=== PATIENT | female | born 1985 | race Caucasian/White ===

== ENCOUNTER 2017-01-10 18:13 | Emergency (ER) | payer BC, OTHER ==
[2017-01-10] MEDS ORDERED: ONDANSETRON 4 MG/2 ML VIAL IVP STA ×2 (18:31→20:33)
[2017-01-10] MEDS ORDERED: SODIUM CHLORIDE 0.9% 500 ML IV STA (18:31)
[2017-01-10] MEDS ORDERED: HYDROmorphone 1 MG/ML 1 ML SYRINGE IVP STA (18:31)
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
[2017-01-10 18:54] LABS: Basophils % (A) 1 %; CHCM 34.8; Eosinophils # (A) 0.3 k/uL (0-0.7); Eosinophils % (A) 4 %; HCT 40.7 % (34.0-46.0); HDW 2.35; HGB 14.1 gm/dL (11.4-16.0); Luc # (Auto) 0.17; Luc % (Auto) 2; Lymphocytes # (A) 2.1 k/uL (1.0-4.8); Lymphocytes % (A) 28 %; MCHC 34.7 g/dL (31.0-37.0); MCV 89.5 fL (80.0-100.0); Mean Platelet Volume 6.8; Monocytes # (A) 0.4 k/uL (0-1.0); Monocytes % (A) 6 %; Neutrophils # (A) 4.5 k/uL (1.3-7.7); Neutrophils % (A) 60 %; RBC 4.54 m/uL (3.80-5.40); RDW 13.3 % (11.5-15.5); WBC 7.5 k/uL (3.8-10.6); WBC (Perox) 7.64
[2017-01-10 19:09] LABS: ALT 45 U/L (9-52); AST 27 U/L (14-36); Alkaline Phosphatase 50 U/L (38-126); Amylase 41 U/L (30-110); Anion Gap 10 mmol/L; Blood Urea Nitrogen 10 mg/dL (7-17); Calcium 9.3 mg/dL (8.4-10.2); Carbon Dioxide 22 mmol/L (22-30); Chloride 109 mmol/L (98-107); Glucose 98 mg/dL (74-99); Non-African American GFR(MDRD) >60 (>60 ml/min/1.73 sqM); Potassium 4.2 mmol/L (3.5-5.1); Sodium 141 mmol/L (137-145); Total Bilirubin 0.6 mg/dL (0.2-1.3); Total Protein 7.5 g/dL (6.3-8.2)
--- NOTE | 2017-01-10 19:51 | XR ---
EXAMINATION TYPE: XR chest 2V DATE OF EXAM: 01/10/2017 COMPARISON: NONE HISTORY: Chest pain TECHNIQUE: Frontal and lateral views of the chest are obtained. FINDINGS: There is no focal air space opacity, pleural effusion, or pneumothorax seen. The cardiac silhouette size is within normal limits. The osseous structures are intact. IMPRESSION: No acute cardiopulmonary process.
--- NOTE | 2017-01-10 19:52 | XR ---
EXAMINATION TYPE: XR KUB DATE OF EXAM: 01/10/2017 7:47 PM CLINICAL HISTORY: Epigastric abdominal pain TECHNIQUE: Single supine KUB image of the abdomen is obtained. COMPARISON: None. FINDINGS: Scattered gas is seen in non-distended small bowel loops. Gas and fecal material is seen in non-distended colon. There is no visceromegaly or pneumoperitoneum. The lung bases are clear and the osseous structures are intact. 5 mm calcification overlies the transverse process of L3 on the left and could represent a ureteral calculus. IMPRESSION: 1. 5 mm calcification overlying the left L3 transverse process that could represent a ureteral calcif ication. 2. Nonobstructive bowel gas pattern.
[2017-01-10 20:43] VITALS: RESP 16
[2017-01-10 20:56] LABS: Appearance,Urine Cloudy (Clear); Bacteria,Urine Many /hpf; Bilirubin,Urine Negative (Negative); Glucose,Urine (UA) Negative (Negative); Ketones,Urine Negative (Negative); Leukocyte Esterase,Urine Large (Negative); Mucus,Urine Many /hpf; Nitrite,Urine Positive (Negative); Particle Count 133536; Protein,Urine Trace (Negative); RBC,Urine 7 /hpf (0-5); Specific Gravity,Urine 1.022 (1.001-1.035); Squamous Epithelial Cell,Urine 5 /hpf (0-4); UA Billing (MACRO vs. MICRO) MICRO; Urobilinogen,Urine <2.0 mg/dL (<2.0); WBC,Urine 38 /hpf (0-5)
[2017-01-10 21:41] VITALS: BP 131/76; PULSE 76; TEMP 98
== END 2017-01-10 21:45 | disposition home or self-care (01) ==
LOC: EC 18:13
DX: S29.012A Strain of muscle and tendon of back wall of thorax, initial encounter (principal); N39.0 Urinary tract infection, site not specified; N20.0 Calculus of kidney; G40.909 Epilepsy, unspecified, not intractable, without status epilepticus; F32.9 Major depressive disorder, single episode, unspecified; F41.9 Anxiety disorder, unspecified; Z87.442 Personal history of urinary calculi; Z79.899 Other long term (current) drug therapy
CPT/HCPCS: 36415; 93005; 80053; 82150; 83690; 84484; 85025; 81001; 81025; 71020; 74000; 99284; 96374; 96375; 96376; J2405; J1170

== ENCOUNTER 2018-02-08 13:36 | Emergency (ER) | payer OTHER ==
[2018-02-08 14:06] VITALS: BP 127/83; PULSE 84; RESP 18; TEMP 99
[2018-02-08] MEDS ORDERED: SODIUM CHLORIDE 0.9% 1,000 ML IV STA (15:31)
[2018-02-08] MEDS ORDERED: ACETAMINOPHEN IV (For NPO) 1,000 MG in EMPTY BAG 1 BAG IVPB STA (15:31)
--- NOTE | 2018-02-08 15:52 | ED ---
General Adult HPI - General Chief complaint: Back Pain/Injury Stated complaint: back pain,kidney stone Time Seen by Provider: 02/08/18 15:17 Source: patient Mode of arrival: ambulatory Limitations: no limitations - Related Data Home Medications Medication Instructions Recorded Confirmed Cetirizine HCl [Zyrtec] 10 mg PO DAILY PRN 01/10/17 01/10/17 Lacosamide [Vimpat] 100 mg PO BID 01/10/17 01/10/17 Omeprazole Magnesium [PriLOSEC OTC] 20 mg PO DAILY 02/08/18 02/08/18 Previous Rx's Medication Instructions Recorded Nitrofurantoin Monohyd/M-Cryst 100 mg PO Q12HR #14 cap 02/08/18 [Macrobid] Allergies Allergy/AdvReac Type Severity Reaction Status Date / Time No Known Allergies Allergy Verified 02/08/18 15:37 Review of Systems ROS Statement: Those systems with pertinent positive or pertinent negative responses have been documented in the HPI. ROS Other: All systems not noted in ROS Statement are negative. Past Medical History Past Medical History: Seizure Disorder Additional Past Medical History / Comment(s): KIDNEY STONE History of Any Multi-Drug Resistant Organisms: None Reported Past Surgical History: Appendectomy, Bowel Resection Additional Past Surgical History / Comment(s): D&C X2 Past Psychological History: Anxiety, Depression Smoking Status: Former smoker Past Alcohol Use History: Rare Past Drug Use History: None Reported General Exam Limitations: no limitations Course Vital Signs 02/08/18 14:04 Temperature 99.0 F Pulse Rate 84 Respiratory 18 Rate Blood Pressure 127/83 O2 Sat by Pulse 98 Oximetry Medical Decision Making - Medical Decision Making Patient reexamined at this time shows no signs of distress is resting comfortably. Patient's labs been reviewed. Patient's blood work is unremarkable. Her urinalysis shows possible urinary tract infection. Patient developed results. Stressing comfortably currently. Patient's vital stable here in the emergency room no fever. Was discussed with patient about further evaluation and imaging with CAT scan. At this time shows being discharged home. She will be started on antibiotics. Given dose of Rocephin here in the emergency room. Advised follow-up family doctor next 2 days return if symptoms increase or worsen. Disposition Clinical Impression: UTI (urinary tract infection) Disposition: HOME SELF-CARE Condition: Good Instructions: Urinary Tract Infection in Women (ED) Additional Instructions: Please use medication as discussed. Please follow-up with family doctor in the next 2 days of symptoms have not improved. Please return to emergency room if the symptoms increase or worsen or for any other concerns. Prescriptions: Nitrofurantoin Monohyd/M-Cryst [Macrobid] 100 mg PO Q12HR #14 cap Is patient prescribed a controlled substance at d/c from ED?: No Referrals: Lang Crenshaw DO [Primary Care Provider] - 1-2 days Time of Disposition: 16:22
[2018-02-08 15:54] LABS: Basophils % (A) 1 %; Eosinophils # (A) 0.1 k/uL (0-0.7); Eosinophils % (A) 2 %; HCT 36.3 % (34.0-46.0); HGB 12.2 gm/dL (11.4-16.0); Lymphocytes # (A) 1.4 k/uL (1.0-4.8); Lymphocytes % (A) 22 %; MCH 30.1 pg (25.0-35.0); MCHC 33.6 g/dL (31.0-37.0); MCV 89.6 fL (80.0-100.0); Mean Platelet Volume 6.6; Monocytes # (A) 0.5 k/uL (0-1.0); Monocytes % (A) 7 %; Neutrophils # (A) 4.2 k/uL (1.3-7.7); Neutrophils % (A) 67 %; Platelet Count 324 k/uL (150-450); RBC 4.05 m/uL (3.80-5.40); RDW 13.1 % (11.5-15.5); WBC 6.3 k/uL (3.8-10.6)
[2018-02-08 15:58] LABS: Amorphous Sediment,Urine Rare /hpf; Appearance,Urine Cloudy (Clear); Bacteria,Urine Many /hpf; Bilirubin,Urine Negative (Negative); Blood,Urine Small (Negative); Color,Urine Light Yellow; Glucose,Urine (UA) Negative (Negative); Ketones,Urine Negative (Negative); Leukocyte Esterase,Urine Moderate (Negative); Nitrite,Urine Negative (Negative); Protein,Urine Negative (Negative); RBC,Urine 1 /hpf (0-5); Specific Gravity,Urine 1.008 (1.001-1.035); Squamous Epithelial Cell,Urine 17 /hpf (0-4); Urobilinogen,Urine <2.0 mg/dL (<2.0)
[2018-02-08 16:03] LABS: ALT 36 U/L (9-52); AST 28 U/L (14-36); Alkaline Phosphatase 41 U/L (38-126); Anion Gap 9 mmol/L; Blood Urea Nitrogen 13 mg/dL (7-17); Calcium 9.2 mg/dL (8.4-10.2); Carbon Dioxide 25 mmol/L (22-30); Chloride 108 mmol/L (98-107); Glucose 96 mg/dL (74-99); Potassium 3.7 mmol/L (3.5-5.1); Sodium 142 mmol/L (137-145); Total Bilirubin 0.3 mg/dL (0.2-1.3); Total Protein 7.1 g/dL (6.3-8.2)
== END 2018-02-08 17:15 | disposition home or self-care (01) ==
LOC: EC 13:36
DX: N39.0 Urinary tract infection, site not specified (principal); G40.909 Epilepsy, unspecified, not intractable, without status epilepticus; Z87.442 Personal history of urinary calculi; Z90.49 Acquired absence of other specified parts of digestive tract; Z98.890 Other specified postprocedural states; Z87.891 Personal history of nicotine dependence; Z79.899 Other long term (current) drug therapy
CPT/HCPCS: 36415; 80053; 85025; 81001; 81025; 87086; 87077; 87186; 99283; 96365; 96375; J0696; J0131

== ENCOUNTER 2018-02-11 14:00 | Emergency (ER) | payer OTHER ==
[2018-02-11 14:05] VITALS: TEMP 98.2
--- NOTE | 2018-02-11 14:42 | ED ---
Back Pain HPI - General Chief Complaint: Back Pain/Injury Stated Complaint: back pain-revisit Time Seen by Provider: 02/11/18 14:14 Source: patient, RN notes reviewed, old records reviewed Limitations: no limitations - History of Present Illness Initial Comments: 32-year-old female presents emergency room for reevaluation. She was seen in the emergency department 3 days ago complaining of left-sided abdominal pain and back pain. Patient ports that she was sinus with urinary tract infection at that time. She was started on Macrobid. She was told to return if he was having any worsening complaints of pain. She reports that she's had no recent bowel movements, since her last ER visit. She is concerned about diverticulitis or possibly passing a stone. Patient did have a positive urine culture for E. coli. She was treated with Macrobid and has been taking the antibiotic as prescribed. She denies any recent fevers or chills. Patient states that she has had a history of appendectomy a few years ago which was completed a in [place]. - Related Data Home Medications Medication Instructions Recorded Confirmed Cetirizine HCl [Zyrtec] 10 mg PO DAILY PRN 01/10/17 02/11/18 Lacosamide [Vimpat] 100 mg PO HS 01/10/17 02/11/18 Omeprazole Magnesium [PriLOSEC OTC] 20 mg PO HS 02/08/18 02/11/18 Previous Rx's Medication Instructions Recorded Nitrofurantoin Monohyd/M-Cryst 100 mg PO Q12HR #14 cap 02/08/18 [Macrobid] Bisacodyl [Dulcolax] 10 mg PO ONCE #15 tablet. 02/11/18 Allergies Allergy/AdvReac Type Severity Reaction Status Date / Time No Known Allergies Allergy Verified 02/11/18 14:33 Review of Systems ROS Statement: Those systems with pertinent positive or pertinent negative responses have been documented in the HPI. ROS Other: All systems not noted in ROS Statement are negative. Past Medical History Past Medical History: Seizure Disorder Additional Past Medical History / Comment(s): KIDNEY STONE History of Any Multi-Drug Resistant Organisms: ESBL Date of last positivie culture/infection: 02/08/18 MDRO Source:: URINE Past Surgical History: Appendectomy, Bowel Resection Additional Past Surgical History / Comment(s): D&C X2 Past Psychological History: Anxiety, Depression Smoking Status: Former smoker Past Alcohol Use History: Rare Past Drug Use History: None Reported General Exam - General Exam Comments Initial Comments: Patient is a pleasant well-appearing 32-year-old female. No acute distress. Limitations: no limitations General appearance: alert Head exam: Present: atraumatic, normocephalic, normal inspection Eye exam: Present: normal appearance, PERRL, EOMI. Absent: scleral icterus, conjunctival injection, periorbital swelling ENT exam: Present: normal exam, mucous membranes moist Neck exam: Present: normal inspection. Absent: tenderness, meningismus, lymphadenopathy Respiratory exam: Present: normal lung sounds bilaterally. Absent: respiratory distress, wheezes, rales, rhonchi, stridor Cardiovascular Exam: Present: regular rate GI/Abdominal exam: Present: soft, tenderness (Left lower quadrant tenderness.), normal bowel sounds. Absent: distended, guarding, rebound, rigid Extremities exam: Present: normal inspection, full ROM, normal capillary refill. Absent: tenderness, pedal edema, joint swelling, calf tenderness Back exam: Present: normal inspection Neurological exam: Present: alert, oriented X3, CN II-XII intact Psychiatric exam: Present: normal affect, normal mood Skin exam: Present: warm, dry, intact, normal color. Absent: rash Course Vital Signs 02/11/18 14:02 Temperature 98.2 F Pulse Rate 71 Respiratory 20 Rate Blood Pressure 141/99 O2 Sat by Pulse 98 Oximetry Medical Decision Making - Medical Decision Making 32-year-old female presents emergency department today with chief complaint of left-sided abdominal pain leading towards her back. She is concerned that she possibly a kidney stone or diverticulitis is that his temperature in the past. Shortness is no fever or chills or vomiting. She states she's not had a bowel movement S5 days. She does have some significant tenderness left lower quadrant as well as some left CVA tenderness. Urinalysis this time is negative for infection or blood. She is being treated currently for with Macrobid for UTI. We did complete a computed tomography scan today which was negative for any acute process. No signs of diverticulitis or obstructing stones. Discussed that Patient likely distal suffering from urinary tract infection needs to complete her antibiotic. I did discuss that her pain could also be due to constipation. We'll put the Patient on stool softeners and give magnesium citrate to go home. I did discuss return parameters and close follow- up with her PCP. - Lab Data Result diagrams: 02/11/18 14:50 02/11/18 14:50 Lab Results 02/11/18 02/11/18 02/11/18 Range/Units 14:50 14:50 14:50 WBC 5.7 (3.8-10.6) k/uL RBC 4.44 (3.80-5.40) m/uL Hgb 13.1 (11.4-16.0) gm/dL Hct 39.8 (34.0-46.0) % MCV 89.8 (80.0-100.0) fL MCH 29.5 (25.0-35.0) pg MCHC 32.8 (31.0-37.0) g/dL RDW 12.9 (11.5-15.5) % Plt Count 390 (150-450) k/uL Neutrophils % 52 % Lymphocytes % 35 % Monocytes % 5 % Eosinophils % 4 % Basophils % 1 % Neutrophils # 3.0 (1.3-7.7) k/uL Lymphocytes # 2.0 (1.0-4.8) k/uL Monocytes # 0.3 (0-1.0) k/uL Eosinophils # 0.2 (0-0.7) k/uL Basophils # 0.1 (0-0.2) k/uL Sodium 144 (137-145) mmol/L Potassium 3.9 (3.5-5.1) mmol/L Chloride 104 (98-107) mmol/L Carbon Dioxide 28 (22-30) mmol/L Anion Gap 12 mmol/L BUN 14 (7-17) mg/dL Creatinine 0.87 (0.52-1.04) mg/dL Est GFR (CKD-EPI)AfAm >90 (>60 ml/min/1.73 sqM) Est GFR (CKD-EPI)NonAf 87 (>60 ml/min/1.73 sqM) Glucose 75 (74-99) mg/dL Calcium 9.6 (8.4-10.2) mg/dL Total Bilirubin 0.3 (0.2-1.3) mg/dL AST 31 (14-36) U/L ALT 51 (9-52) U/L Alkaline Phosphatase 51 (38-126) U/L Total Protein 7.6 (6.3-8.2) g/dL Albumin 4.2 (3.5-5.0) g/dL Amylase 55 (30-110) U/L Lipase 121 (23-300) U/L Urine Color Yellow Urine Appearance Cloudy H (Clear) Urine pH 6.5 (5.0-8.0) Ur Specific [place] 1.008 (1.001-1.035) Urine Protein Negative (Negative) Urine Glucose (UA) Negative (Negative) Urine Ketones Negative (Negative) Urine Blood Negative (Negative) Urine Nitrite Negative (Negative) Urine Bilirubin Negative (Negative) Urine Urobilinogen <2.0 (<2.0) mg/dL Ur Leukocyte Esterase Negative (Negative) Urine RBC <1 (0-5) /hpf Urine WBC 4 (0-5) /hpf Ur Squamous Epith Cells 11 H (0-4) /hpf Urine Bacteria Rare H (None) /hpf Urine Mucus Rare H (None) /hpf Disposition Clinical Impression: Constipation, UTI (urinary tract infection) Disposition: HOME SELF-CARE Condition: Good Instructions: Constipation (ED) Additional Instructions: Patient has have close follow-up with primary care physician. Complete antibiotics as previously prescribed. Return to the emergency department if any alarming signs or symptoms occur. Prescriptions: Bisacodyl [Dulcolax] 10 mg PO ONCE #15 tablet.dr Is patient prescribed a controlled substance at d/c from ED?: No Referrals: Lang Crenshaw DO [Primary Care Provider] - 1-2 days Time of Disposition: 15:55
[2018-02-11 15:05] LABS: Basophils # (A) 0.1 k/uL (0-0.2); Basophils % (A) 1 %; Eosinophils # (A) 0.2 k/uL (0-0.7); Eosinophils % (A) 4 %; HCT 39.8 % (34.0-46.0); HGB 13.1 gm/dL (11.4-16.0); Lymphocytes % (A) 35 %; MCH 29.5 pg (25.0-35.0); MCHC 32.8 g/dL (31.0-37.0); MCV 89.8 fL (80.0-100.0); Mean Platelet Volume 6.2; Monocytes # (A) 0.3 k/uL (0-1.0); Monocytes % (A) 5 %; Neutrophils % (A) 52 %; Platelet Count 390 k/uL (150-450); RBC 4.44 m/uL (3.80-5.40); RDW 12.9 % (11.5-15.5); WBC 5.7 k/uL (3.8-10.6)
[2018-02-11 15:08] LABS: Appearance,Urine Cloudy (Clear); Bacteria,Urine Rare /hpf; Bilirubin,Urine Negative (Negative); Blood,Urine Negative (Negative); Color,Urine Yellow; Glucose,Urine (UA) Negative (Negative); Ketones,Urine Negative (Negative); Leukocyte Esterase,Urine Negative (Negative); Mucus,Urine Rare /hpf; Nitrite,Urine Negative (Negative); PH, Urine 6.5 (5.0-8.0); Protein,Urine Negative (Negative); RBC,Urine <1 /hpf (0-5); Specific Gravity,Urine 1.008 (1.001-1.035); Squamous Epithelial Cell,Urine 11 /hpf (0-4); Urobilinogen,Urine <2.0 mg/dL (<2.0); WBC,Urine 4 /hpf (0-5)
[2018-02-11 15:14] LABS: ALT 51 U/L (9-52); AST 31 U/L (14-36); Albumin 4.2 g/dL (3.5-5.0); Alkaline Phosphatase 51 U/L (38-126); Amylase 55 U/L (30-110); Anion Gap 12 mmol/L; Blood Urea Nitrogen 14 mg/dL (7-17); Calcium 9.6 mg/dL (8.4-10.2); Carbon Dioxide 28 mmol/L (22-30); Chloride 104 mmol/L (98-107); Glucose 75 mg/dL (74-99); Lipase 121 U/L (23-300); Potassium 3.9 mmol/L (3.5-5.1); Sodium 144 mmol/L (137-145); Total Bilirubin 0.3 mg/dL (0.2-1.3); Total Protein 7.6 g/dL (6.3-8.2)
--- NOTE | 2018-02-11 15:22 | CT ---
EXAMINATION TYPE: CT abdomen pelvis wo con DATE OF EXAM: 02/11/2018 HISTORY: left sided flank pain CT DLP: 339.0 mGycm. Automated Exposure Control for Dose Reduction was Utilized. TECHNIQUE: CT scan of the abdomen and pelvis is performed without oral or IV contrast. COMPARISON: NONE FINDINGS: Within the limitations of a non-contrast study, the following observations are made. LUNG BASES: There is left basilar linear scarring and/or atelectasis. LIVER/GB: Contracted gallbladder is present. Prominent stomach noted. PANCREAS: No significant abnormality is seen. SPLEEN: No significant abnormality is seen. ADRENALS: No significant abnormality is seen. KIDNEYS: No renal stones or hydronephrosis is present bilaterally. BOWEL: Debris-filled stomach suggest recent meal ingestion. Surgical clips from appendectomy seen at base of cecum. Some high dense material distal colon is presumed ingested food product. There is no s uspicious small or large bowel dilatation. GENITAL ORGANS: Anteverted uterus is seen. LYMPH NODES: No greater than 1cm abdominal or pelvic lymph nodes are appreciated. OSSEOUS STRUCTURES: There is left-sided pars defects L5 level. There is sclerosis right-sided L5 leve l. No significant spondylolisthesis is present. Mild disc space narrowing L5-S1 level is seen. Mild f acet arthropathy lower lumbar spine is present. OTHER: No significant additional abnormality is seen. IMPRESSION: No renal stones or hydronephrosis is seen bilaterally. No suspicious acute finding is see n to account for patient's symptoms.
[2018-02-11] MEDS ORDERED: MAGNESIUM CITRATE 296 ML BOTTLE PO ONE (15:55)
[2018-02-11] MEDS ORDERED: ONDANSETRON 4 MG/2 ML VIAL IVP STA (15:57)
[2018-02-11] MEDS ORDERED: KETOROLAC 30 MG/ML 1 ML VIAL IVP STA (15:57)
[2018-02-11] MEDS ORDERED: traMADol 50 MG STARTER PACK 3 TAB BTL PO STA (16:08)
[2018-02-11 16:36] VITALS: BP 138/95; PULSE 70; RESP 18
== END 2018-02-11 16:36 | disposition home or self-care (01) ==
LOC: EC 14:00
DX: K59.00 Constipation, unspecified (principal); N39.0 Urinary tract infection, site not specified; G40.909 Epilepsy, unspecified, not intractable, without status epilepticus; Z87.442 Personal history of urinary calculi; Z90.49 Acquired absence of other specified parts of digestive tract; Z79.899 Other long term (current) drug therapy; Z87.890 Personal history of sex reassignment; Z87.891 Personal history of nicotine dependence
CPT/HCPCS: 36415; 74176; 80053; 81001; 82150; 83690; 85025; 87086; 99284

== ENCOUNTER → 2018-11-11 | Outpatient (CLI) | payer OTHER ==
[2018-11-11 12:55] LABS: Basophils # (A) 0.1 k/uL (0-0.2); Basophils % (A) 1 %; Eosinophils # (A) 0.3 k/uL (0-0.7); Eosinophils % (A) 5 %; HCT 38.5 % (34.0-46.0); HGB 12.9 gm/dL (11.4-16.0); Lymphocytes # (A) 1.7 k/uL (1.0-4.8); Lymphocytes % (A) 29 %; MCH 29.9 pg (25.0-35.0); MCHC 33.7 g/dL (31.0-37.0); MCV 88.8 fL (80.0-100.0); Mean Platelet Volume 7.2; Monocytes # (A) 0.4 k/uL (0-1.0); Monocytes % (A) 6 %; Neutrophils # (A) 3.3 k/uL (1.3-7.7); Neutrophils % (A) 57 %; Platelet Count 336 k/uL (150-450); RBC 4.33 m/uL (3.80-5.40); RDW 14.5 % (11.5-15.5); WBC 5.8 k/uL (3.8-10.6)
[2018-11-11 16:53] LABS: Albumin 4.3 g/dL (3.80-4.90); Albumin/Globulin Ratio 1.95 (1.60-3.17); Anion Gap 6.1 mmol/L (4.00-12.00); BUN/Creat Ratio 12.22 Ratio (12.00-20.00); Calcium 9.2 mg/dL (8.7-10.3); Carbon Dioxide 22.9 mmol/L (21.6-31.8); Globulin 2.2 g/dL (1.6-3.3); Potassium 4.5 mmol/L (3.5-5.5); Total Bilirubin 0.4 mg/dL (0.2-1.2); Total Protein 6.5 g/dL (6.2-8.2)
[2018-11-11 16:57] LABS: Vitamin D 25 Hydroxy 26.2 ng/mL (30.0-100.0)
== END | disposition home or self-care (01) ==
LOC: LABWHC1 11:39
PROVIDERS: ATTEND Nurse Practitioner Acute Care
DX: G40.909 Epilepsy, unspecified, not intractable, without status epilepticus (principal); E55.9 Vitamin D deficiency, unspecified; Z51.81 Encounter for therapeutic drug level monitoring
CPT/HCPCS: 36415; 80053; 80339; 82306; 82607; 85025

== ENCOUNTER → 2020-05-06 | Outpatient (CLI) | payer OTHER | END | disposition home or self-care (01) | LOC: LABWHC1 11:20 | PROVIDERS: ATTEND Nurse Practitioner Family | DX: Z20.828 Contact with and (suspected) exposure to other viral communicable diseases (principal) | CPT/HCPCS: 87635; C9803 ==

== ENCOUNTER 2021-12-30 17:53 | Observation (INO) | payer OTHER ==
[2021-12-30 19:10] LABS: Glucose,Whole Blood 107 mg/dL (70-110)
[2021-12-30 19:22] LABS: Appearance,Urine Cloudy (Clear); Bacteria,Urine Many /hpf; Bilirubin,Urine Negative (Negative); Blood,Urine Negative (Negative); Color,Urine Yellow; Glucose,Urine (UA) Negative (Negative); Hyaline Casts,Urine 1 /lpf (0-2); Ketones,Urine Negative (Negative); Leukocyte Esterase,Urine Trace (Negative); Nitrite,Urine Negative (Negative); Protein,Urine 1+ (Negative); RBC,Urine 1 /hpf (0-5); Specific Gravity,Urine 1.012 (1.001-1.035); Squamous Epithelial Cell,Urine 5 /hpf (0-4); Urobilinogen,Urine <2.0 mg/dL (<2.0); WBC,Urine 6 /hpf (0-5)
[2021-12-30 19:24] LABS: Creatinine,Urine Random 91.2 mg/dL; Protein/Creatinine Ratio,Urine 0.68
[2021-12-30 19:43] LABS: Basophils % (A) 0 %; Eosinophils # (A) 0.1 k/uL (0-0.7); Eosinophils % (A) 1 %; HCT 38.8 % (34.0-46.0); HGB 13.4 gm/dL (11.4-16.0); Lymphocytes # (A) 1.5 k/uL (1.0-4.8); Lymphocytes % (A) 16 %; MCH 35.1 pg (25.0-35.0); MCHC 34.5 g/dL (31.0-37.0); MCV 101.7 fL (80.0-100.0); Macrocytosis Slight; Mean Platelet Volume 9.2; Monocytes # (A) 0.6 k/uL (0-1.0); Monocytes % (A) 6 %; Neutrophils # (A) 6.7 k/uL (1.3-7.7); Neutrophils % (A) 75 %; Platelet Count 226 k/uL (150-450); RBC 3.81 m/uL (3.80-5.40); RDW 14.3 % (11.5-15.5)
[2021-12-30 19:49] LABS: ALT 16 U/L (4-34); AST 27 U/L (14-36); African American GFR (CKD) >90 (>60 ml/min/1.73 sqM); Blood Urea Nitrogen 10 mg/dL (7-17); LDH 424 U/L (313-618); Non-African American GFR(CKD) >90 (>60 ml/min/1.73 sqM); Uric Acid 6.5 mg/dL (3.7-7.4)
[2021-12-30] MEDS ORDERED: LACTATED RINGERS 1,000 ML IV SCH (20:15)
[2021-12-30] MEDS: LABETALOL 100 MG TAB PO SCH (20:32)
--- NOTE | 2021-12-30 20:40 | P.HPOB ---
History of Present Illness H&P Date: 12/30/21 Chief Complaint: IUP at 34-6/7 weeks, gestational hypertension This is a 36-year-old G5 P 0222-2 at 34-6/7 weeks that presents to labor and delivery with complaints of vaginal pressure. She states she called her primary OB and was told to go to the nearest hospital given her history of deliveries and vaginal pressure. Patient states she has been watched throughout the for slightly elevated blood pressures, all blood pressures have been consistently 140s over 90s. She isnt taking any medication for blood pressure at this point. Initial blood pressures in triage 140s over 90s consistent with what she has been throughout the . Patient denies any signs or symptoms of preeclampsia. Patient notes good movement, denies loss of fluid or vaginal bleeding Patient states her prior deliveries were both , spontaneous la bor. She states she had a diagnosis of preeclampsia with her last delivery. Patient has been receiving care with a tertiary care center. Patient had a diagnosis of gestational diabetes for which she has been diet controlled. In addition patient has a history of seizure disorder which has been controlled with oral medication, her last seizure was approximately 4 years ago. Review of Systems Constitutional: Denies chills, Denies fatigue, Denies fever Ears, nose, mouth and throat: Denies headache Cardiovascular: Reports leg edema Respiratory: Denies dyspnea Gastrointestinal: Denies constipation, Denies diarrhea, Denies nausea, Denies vomiting Genitourinary: Denies Past Medical History Past Medical History: Seizure Disorder Additional Past Medical History / Comment(s): KIDNEY STONE History of Any Multi-Drug Resistant Organisms: ESBL Date of last positivie culture/infection: 02/11/18 MDRO Source:: URINE Past Surgical History: Appendectomy, Bowel Resection Additional Past Surgical History / Comment(s): D&C X2 Smoking Status: Never smoker Medications and Allergies Home Medications Medication Instructions Recorded Confirmed Type Lacosamide [Vimpat] 100 mg PO BID 01/10/17 12/30/21 History Omeprazole Magnesium [PriLOSEC OTC] 20 mg PO HS 02/08/18 12/30/21 History Aspirin [Adult Low Dose Aspirin EC] 81 mg PO DAILY 12/30/21 12/30/21 History Loratadine [Claritin] 10 mg PO DAILY 12/30/21 12/30/21 History Sertraline HCl [Zoloft] 75 mg PO DAILY 12/30/21 12/30/21 History Allergies Allergy/AdvReac Type Severity Reaction Status Date / Time No Known Allergies Allergy Verified 12/30/21 18:16 Exam Osteopathic Statement: *. No significant issues noted on an osteopathic structural exam other than those noted in the History and Physical/Consult. Intake and Output 12/30/21 12/30/21 12/30/21 06:59 14:59 22:59 Other: Weight 91.172 kg Targeted physical exam is performed in this date in general this is a well- nourished well-developed female in no acute distress, breathing is nonlabored, heart has a regular rate and rhythm, abdomen is gravid and appropriate for gestational age, heart tones are noted to be category 1 and she is karen very irregularly. On cervical exam she was 2/50/-2. Results Result Diagrams: 12/30/21 19:28 12/30/21 19:28 Abnormal Lab Results - Last 24 Hours (Table) 12/30/21 12/30/21 Range/Units 18:15 19:28 MCV 101.7 H (80.0-100.0) fL MCH 35.1 H (25.0-35.0) pg Urine Appearance Cloudy H (Clear) Urine Protein 1+ H (Negative) Ur Leukocyte Esterase Trace H (Negative) Urine WBC 6 H (0-5) /hpf Ur Squamous Epith Cells 5 H (0-4) /hpf Urine Bacteria Many H (None) /hpf Assessment and Plan (1) with 34 to 36 completed weeks gestation Current Visit: Yes Status: Acute Code(s): DGQ0071 - SNOMED Code(s): 66323538 (2) Gestational HTN Current Visit: Yes Status: Acute Code(s): O13.9 - GESTATIONAL HTN W/O SIGNIFICANT PROTEINURIA, UNSP TRIMESTER SNOMED Code(s): 50214981 (3) H/O delivery, currently Current Visit: Yes Status: Acute Code(s): O09.899 - SUPERVISION OF OTHER HIGH RISK PREGNANCIES, UNSP TRIMESTER SNOMED Code(s): 338109010 (4) GDM (gestational diabetes mellitus), class A1 Narrative/Plan: Diet controlled Current Visit: Yes Status: Acute Code(s): O24.410 - GESTATIONAL DIABETES MELLITUS IN , DIET CONTROLLED SNOMED Code(s): 51065016 (5) Seizure disorder Narrative/Plan: Last seizure 4 years ago stable on current medication Current Visit: Yes Status: Acute Code(s): G40.909 - EPILEPSY, UNSP, NOT INTRACTABLE, WITHOUT STATUS EPILEPTICUS SNOMED Code(s): 347062316 (6) AMA (advanced maternal age) multigravida 35+ Current Visit: Yes Status: Acute Code(s): O09.529 - SUPERVISION OF ELDERLY MULTIGRAVIDA, UNSPECIFIED TRIMESTER SNOMED Code(s): 335043495 Plan: 36-year-old G5 para 0-22 at 34-6/7 weeks that presents with complaints of vaginal pressure, patient is deemed to be not in labor although blood pressures are elevated 140s over 90s. Patient states this is normal for her. We will begin oral labetalol 100 mg twice daily. Preeclampsia labs are performed and normal with the exception of an elevated protein creatinine ratio of 0.6. Given the patient has no signs or symptoms of preeclampsia will OB be this patient repeat preeclampsia labs in the a.m., initiate labetalol 100 mg twice daily, NST every shift. Discussed with the patient if labs are stable in the am , blood pressures improve with labetalol po will plan discharge home tomorrow. Plan for her to follow up with her OB. Will obtain records from her WINDOWS SERVER ARCHITECT in addition.
[2021-12-30] MEDS ORDERED: BETAMET ACET-BETAMETH SOD PHOS 6 MG/ML MDV IM SCH (22:45)
[2021-12-31 07:30] LABS: Basophils % (A) 0 %; Eosinophils % (A) 0 %; HCT 38.9 % (34.0-46.0); HGB 13.1 gm/dL (11.4-16.0); Lymphocytes # (A) 0.8 k/uL (1.0-4.8); Lymphocytes % (A) 9 %; MCH 34.1 pg (25.0-35.0); MCHC 33.8 g/dL (31.0-37.0); Macrocytosis Slight; Mean Platelet Volume 8.8; Monocytes # (A) 0.3 k/uL (0-1.0); Monocytes % (A) 3 %; Neutrophils % (A) 88 %; Platelet Count 222 k/uL (150-450); RBC 3.85 m/uL (3.80-5.40); RDW 14.2 % (11.5-15.5); WBC 9.2 k/uL (3.8-10.6)
[2021-12-31] MEDS: LABETALOL 100 MG TAB PO SCH (07:38)
[2021-12-31 07:46] LABS: ALT 16 U/L (4-34); AST 25 U/L (14-36); African American GFR (CKD) >90 (>60 ml/min/1.73 sqM); Blood Urea Nitrogen 8 mg/dL (7-17); LDH 427 U/L (313-618); Non-African American GFR(CKD) >90 (>60 ml/min/1.73 sqM); Uric Acid 6.4 mg/dL (3.7-7.4)
[2021-12-31 08:28] VITALS: BP 127/81; PULSE 74; RESP 17; TEMP 97.6
--- NOTE | 2021-12-31 08:58 | P.DS ---
Providers Date of admission: 12/30/21 20:15 Expected date of discharge: 12/31/21 Attending physician: Annie Lomeli Primary care physician: Stated None - Discharge Diagnosis(es) (1) with 34 to 36 completed weeks gestation Current Visit: Yes Status: Acute (2) Gestational HTN Current Visit: Yes Status: Acute (3) H/O delivery, currently Current Visit: Yes Status: Acute (4) GDM (gestational diabetes mellitus), class A1 Current Visit: Yes Status: Acute (5) Seizure disorder Current Visit: Yes Status: Acute (6) AMA (advanced maternal age) multigravida 35+ Current Visit: Yes Status: Acute Hospital Course: This is a 36-year-old 5 para 0-22 at 35-0/7 weeks today that presented yesterday with complaints of vaginal pressure. Patient was found to have elevated blood pressures 140s over 90s well in triage. Patient was not in labor but was observed given elevated blood pressures. Patient had preeclampsia labs on initial presentation which were normal in nature with the exception of an elevated protein creatinine ratio of 0.6. Patient denied signs or symptoms of preeclampsia. Patient was observed overnight for repeat labs in the morning to ensure preeclampsia labs were negative. Preeclampsia labs were negative this morning. Patient slept through the night denied contractions. This a.m. patient was noted to have a few contractions on the monitor along with a stephanie gory 1 NST. Patient was examined on vaginal exam she was 250 posterior vertex presentation. Patient is counseled on discharge home today. Patient received betamethasone 1 last evening and is encouraged to return for her second betamethasone shot tonight. Patient is encouraged to follow up with her primary COMMUNICATIONS ANALYST next week. Patient is urged to take it easy at home no intercourse, nothing in the vagina. Patient is given labor precautions. Patient was begun on labetalol 100 mg twice daily during this observation stay. Patient's blood pressures have been 120s to 130s over 80s. Patient continues to deny preeclampsia symptoms. Attempt was made to obtain records from [facility], they stated they had no records on this patient. Patient Condition at Discharge: Good Plan - Discharge Summary New Discharge Prescriptions: No Action Lacosamide [Vimpat] 100 mg PO BID Omeprazole Magnesium [PriLOSEC OTC] 20 mg PO HS Aspirin [Adult Low Dose Aspirin EC] 81 mg PO DAILY Loratadine [Claritin] 10 mg PO DAILY Sertraline HCl [Zoloft] 75 mg PO DAILY Discharge Medication List Lacosamide [Vimpat] 100 mg PO BID 01/10/17 [History] Omeprazole Magnesium [PriLOSEC OTC] 20 mg PO HS 02/08/18 [History] Aspirin [Adult Low Dose Aspirin EC] 81 mg PO DAILY 12/30/21 [History] Loratadine [Claritin] 10 mg PO DAILY 12/30/21 [History] Sertraline HCl [Zoloft] 75 mg PO DAILY 12/30/21 [History] Activity/Diet/Wound Care/Special Instructions: Patient is given labor precautions along with urged to follow up with her primary COMMUNICATIONS ANALYST next week. Patient is encouraged to take her labetalol twice daily as instructed. Discharge Disposition: HOME SELF-CARE
--- NOTE | 2021-12-31 09:00 | P.PN ---
Progress Note - Text Progress Note Date: 12/31/21 36-year-old 5 para 0-22 at 35-0/7 weeks was observed overnight for gestational hypertension. Patient is a current patient of [facility] given prior history of advanced maternal age, preeclampsia with her last delivery, gestational diabetes, seizure disorder, she states her last seizure was 4 years ago and has been controlled on oral medication. Patient initially presented for vaginal pressure rule out labor, elevated blood pressures were appreciated in triage 140s/90s. Patient states that's where she has been throughout the . Patient is not on any medications, labetalol 100 mg twice daily was begun. Patient has done well overnight well, she was able to sleep through the night and did not awake with contractions. Repeat cervical exam this morning was unchanged 250/-3, posterior with vertex presentation. heart tones while on labor and delivery, NST category 1 occasional contractions are appreciated Patient was given betamethasone last evening for lung maturation. She is encouraged to follow up today for additional injection. Patient is given labor precautions along with preeclampsia precautions she is urged to follow up with her primary PLUMBING SERVICE TECHNICIAN next week.
== END 2021-12-31 09:30 | disposition home or self-care (01) ==
LOC: FBPOP 17:53 → 4FBP 20:15
PROVIDERS: ADMIT Obstetrics & Gynecology Obstetrics; ATTEND Obstetrics & Gynecology Obstetrics
DX: O13.3 Gestational [pregnancy-induced] hypertension without significant proteinuria, third trimester (principal); O24.410 Gestational diabetes mellitus in pregnancy, diet controlled; O99.353 Diseases of the nervous system complicating pregnancy, third trimester; G40.909 Epilepsy, unspecified, not intractable, without status epilepticus; O09.523 Supervision of elderly multigravida, third trimester; Z79.82 Long term (current) use of aspirin; Z79.899 Other long term (current) drug therapy; Z87.51 Personal history of pre-term labor; Z87.442 Personal history of urinary calculi; Z90.49 Acquired absence of other specified parts of digestive tract; Z16.12 Extended spectrum beta lactamase (ESBL) resistance
CPT/HCPCS: 59025; 96360; 96361 ×2; 96372; 82570; 84156; 82565 ×2; 83615 ×2; 84450 ×2; 84460 ×2; 84520 ×2; 84550 ×2; 85025 ×2; 81001; G0463; G0378 ×2; J0702; 99215

== ENCOUNTER 2021-12-31 19:12 | Outpatient (CLI) | payer OTHER ==
[2021-12-31] MEDS ORDERED: BETAMET ACET-BETAMETH SOD PHOS 6 MG/ML MDV IM SCH (19:30)
== END 2021-12-31 19:30 | disposition home or self-care (01) ==
LOC: FBPOP 19:12
PROVIDERS: ATTEND Obstetrics & Gynecology Obstetrics
DX: O60.00 Preterm labor without delivery, unspecified trimester (principal); Z3A.35 35 weeks gestation of pregnancy; Z87.891 Personal history of nicotine dependence
CPT/HCPCS: 96372; J0702

== ENCOUNTER 2022-08-10 09:24 | Emergency (ER) | payer OTHER ==
[2022-08-10 09:33] VITALS: TEMP 98.8
[2022-08-10 09:48] VITALS: RESP 16
[2022-08-10] MEDS ORDERED: LIDOCAINE 1% INJ 10MG/ML (30 ML VIAL-PF) SQ ONE (10:22)
--- NOTE | 2022-08-10 10:23 | ED ---
General Adult HPI - General Chief complaint: Urogenital Stated complaint: Perineum Pain Time Seen by Provider: 08/10/22 10:14 Source: patient, RN notes reviewed Mode of arrival: ambulatory Limitations: no limitations - History of Present Illness Initial comments: 37-year-old female who is 7 months presents to the emergency department with a chief complaint of rectal pain. Patient reports 2 days ago she noticed a small bulge in her rectal area. She notes that it has recently or today. She reports a small area of pain lateral to the hemorrhoid. She denies any blood in his stool, because straining while having bowel movement. She denies any fevers, chills, flank pain, dysuria, hematuria. She does report she has had frequent use infections since giving however she took Diflucan 2 days ago which has resolved her symptoms. - Related Data Home Medications Medication Instructions Recorded Confirmed Lacosamide [Vimpat] 100 mg PO BID 01/10/17 12/31/21 Aspirin [Adult Low Dose Aspirin EC] 81 mg PO DAILY 12/30/21 01/06/22 Loratadine [Claritin] 10 mg PO DAILY 12/30/21 12/31/21 Sertraline HCl [Zoloft] 75 mg PO DAILY 12/30/21 12/31/21 Labetalol [Trandate] 1 tab PO DAILY 01/06/22 01/06/22 Previous Rx's Medication Instructions Recorded Lidocaine 5% Oint [Xylocaine 5% 1 applic TOPICAL TID #50 gm 08/10/22 Oint] Allergies Allergy/AdvReac Type Severity Reaction Status Date / Time No Known Allergies Allergy Verified 08/10/22 09:33 Review of Systems ROS Statement: Those systems with pertinent positive or pertinent negative responses have been documented in the HPI. ROS Other: All systems not noted in ROS Statement are negative. Past Medical History Past Medical History: Seizure Disorder Additional Past Medical History / Comment(s): KIDNEY STONE History of Any Multi-Drug Resistant Organisms: None Reported, ESBL Date of last positivie culture/infection: 02/11/18 MDRO Source:: URINE Past Surgical History: Appendectomy, Bowel Resection Additional Past Surgical History / Comment(s): D&C X2 Past Anesthesia/Blood Transfusion Reactions: No Reported Reaction Past Psychological History: Anxiety, Depression Smoking Status: Never smoker Past Alcohol Use History: Rare Past Drug Use History: None Reported - Past Family History Mother Family Medical History: Seizure Disorder Additional Family Medical History / Comment(s): closed head injury, Father Family Medical History: Cancer, COPD Additional Family Medical History / Comment(s): General Exam Limitations: no limitations Course Vital Signs 08/10/22 08/10/22 08/10/22 09:29 09:33 11:01 Temperature 98.8 F Pulse Rate 83 80 68 Respiratory 18 16 16 Rate Blood Pressure 150/79 130/80 130/86 O2 Sat by Pulse 97 98 98 Oximetry Medical Decision Making - Medical Decision Making Was pt. sent in by a medical professional or institution (, RUBI, ABATEMENT WORKER, urgent care, hospital, or fci...) When possible be specific @ -[No] Did you speak to anyone other than the patient for history (EMS, parent, family, police, friend...)? What history was obtained from this source @ -[No] Did you review nursing and triage notes (agree or disagree)? Why? @ -[I reviewed and agree with nursing and triage notes] Were old charts reviewed (outside hosp., previous admission, EMS record, old EKG, old radiological studies, urgent care reports/EKG's, fci records)? Report findings @ -[No old charts were reviewed] Differential Diagnosis (chest pain, altered mental status, abdominal pain women, abdominal pain men, vaginal bleeding, weakness, fever, dyspnea, syncope, headache, dizziness, GI bleed, back pain, seizure, CVA, palpatations, mental health, musculoskeletal)? @ -[not applicable] EKG interpreted by me (3pts min.). @ -[As above] X-rays interpreted by me (1pt min.). @ -[None done] CT interpreted by me (1pt min.). @ -[None done] U/S interpreted by me (1pt. min.). @ -[None done] What testing was considered but not performed or refused? (CT, X-rays, U/S, labs)? Why? @ -[None] What meds were considered but not given or refused? Why? @ -[None] Did you discuss the management of the patient with other professionals (professionals i.e. , PA, ABATEMENT WORKER, lab, RT, psych nurse, social work associate, banquet attendant, teacher, community chest officer, employment case manager)? Give summary @ -[No] Was smoking cessation discussed for >3mins.? @ -[No] Was critical care preformed (if so, how long)? @ -[No] Were there social determinants of health that impacted care today? How? (Homelessness, low income, unemployed, alcoholism, drug addiction, transportation, low edu. Level, literacy, decrease access to med. care, residential, rehab)? @ -[No] Was there de-escalation of care discussed even if they declined (Discuss DNR or withdrawal of care, Hospice)? DNR status @ -[No] What co-morbidities impacted this encounter? (DM, HTN, Smoking, COPD, CAD, Cancer, CVA, ARF, Chemo, Hep., AIDS, mental health diagnosis, sleep apnea, morbid obesity)? @ -[None] Was patient admitted / discharged? Hospital course, mention meds given and route, prescriptions, significant lab abnormalities, going to OR and other pertinent info. @ Charge. 37-year-old female who presents to the emergency department with chief complaint of rectal pain. She had a thorough history and physical exam performed. Physical exam is consistent with external nonthrombosed hemorrhoid. Patient was given 5% later during cream to apply to the area. She was encouraged to keep the area dry and clean. Return precautions were discussed at length. Patient discharged in stable condition. Case discussed with Dr. Maciel who agrees with plan of care. Undiagnosed new problem with uncertain prognosis? @ -[No] Drug Therapy requiring intensive monitoring for toxicity (Heparin, Nitro, Insulin, Cardizem)? @ -[No] Were any procedures done? @ -[No] Diagnosis/symptom? @ -hemorrhoid Acute, or Chronic, or Acute on Chronic? @ -acute Uncomplicated (without systemic symptoms) or Complicated (systemic symptoms)? @ -uncomplicated Side effects of treatment? @ -[No] Exacerbation, Progression, or Severe Exacerbation? @ -[No] Poses a threat to life or bodily function? How? (Chest pain, [place], [place], pneumonia, PE, COPD, DKA, ARF, appy, cholecystitis, CVA, Diverticulitis, Homicidal, Suicidal, threat to staff... and all critical care pts) @ -low likelihood - Lab Data Lab Results 03/23/23 03/23/23 Range/Units 09:42 09:42 Urine Color Light Yellow Urine Appearance Cloudy H (Clear) Urine pH 5.5 (5.0-8.0) Ur Specific [place] 1.009 (1.001-1.035) Urine Protein Negative (Negative) Urine Glucose (UA) Negative (Negative) Urine Ketones Negative (Negative) Urine Blood Negative (Negative) Urine Nitrite Negative (Negative) Urine Bilirubin Negative (Negative) Urine Urobilinogen <2.0 (<2.0) mg/dL Ur Leukocyte Esterase Negative (Negative) Urine RBC <1 (0-5) /hpf Urine WBC 2 (0-5) /hpf Ur Squamous Epith Cells 8 H (0-4) /hpf Urine HCG, Qual Not Detected (Not Detectd) Disposition Clinical Impression: Hemorrhoid Disposition: HOME SELF-CARE Condition: Stable Instructions (If sedation given, give patient instructions): Hemorrhoids (ED) Additional Instructions: Please return to the nearest emergency department if symptoms worsen or persist Prescriptions: Lidocaine 5% Oint [Xylocaine 5% Oint] 1 applic TOPICAL TID #50 gm Is patient prescribed a controlled substance at d/c from ED?: No Referrals: Lang Crenshaw DO [Primary Care Provider] - 1-2 days Time of Disposition: 10:38
[2022-08-10 10:46] LABS: Appearance,Urine Cloudy (Clear); Bilirubin,Urine Negative (Negative); Blood,Urine Negative (Negative); Color,Urine Light Yellow; Glucose,Urine (UA) Negative (Negative); Ketones,Urine Negative (Negative); Leukocyte Esterase,Urine Negative (Negative); Nitrite,Urine Negative (Negative); PH, Urine 5.5 (5.0-8.0); Protein,Urine Negative (Negative); RBC,Urine <1 /hpf (0-5); Specific Gravity,Urine 1.009 (1.001-1.035); Squamous Epithelial Cell,Urine 8 /hpf (0-4); Urobilinogen,Urine <2.0 mg/dL (<2.0); WBC,Urine 2 /hpf (0-5)
[2022-08-10] MEDS ORDERED: LIDOCAINE 4% CREAM 5 GM TUBE TOPICAL ONE (10:50)
[2022-08-10 11:02] VITALS: BP 130/86; PULSE 68
== END 2022-08-10 11:01 | disposition home or self-care (01) ==
LOC: EC 09:24
DX: K64.4 Residual hemorrhoidal skin tags (principal); F32.A Depression, unspecified; Z90.89 Acquired absence of other organs; Z79.82 Long term (current) use of aspirin; Z79.899 Other long term (current) drug therapy; Z87.442 Personal history of urinary calculi
CPT/HCPCS: 81001; 81025; 99283